=== PATIENT | male | born 1985 | race American Indian/Alaskan Native ===

== ENCOUNTER 2017-05-24 08:44 | Emergency (ER) | payer SELFPAY ==
[2017-05-24 09:05] VITALS: TEMP 98.4; O2SAT 100
--- NOTE | 2017-05-24 09:45 | ED PDOC ---
Arrival/HPI - General Chief Complaint: Lower Extremity Problem/Injury Time Seen by Provider: 05/24/17 09:26 Historian: Patient - History of Present Illness Narrative History of Present Illness (Text): 05/24/17 09:43 31yo male with no PMHx present with complaint of right foot pain. States he twisted his right foot yesterday. Started having pain when he woke up this morning. Pain is with ambulation. Did not take any medication for the pain. Past Medical History - Provider Review Nursing Documentation Reviewed: Yes - Infectious Disease Hx of Infectious Diseases: None - Psychiatric Hx Substance Use: No - Anesthesia Hx Anesthesia: No Family/Social History - Physician Review Nursing Documentation Reviewed: Yes Family/Social History: Unknown Family HX Smoking Status: Current Some Days Smoker Hx Alcohol Use: No Hx Substance Use: No Allergies/Home Meds Allergies/Adverse Reactions: Allergies No Known Allergies Allergy (Verified 05/24/17 09:05) Review of Systems - Physician Review All systems were reviewed & negative as marked: Yes - Review of Systems Constitutional: Normal Eyes: Normal ENT: Normal Respiratory: Normal Cardiovascular: Normal Gastrointestinal: Normal Genitourinary Male: Normal Musculoskeletal: Arthralgias (Right foot pain) Skin: Normal Neurological: Normal Endocrine: Normal Hemo/Lymphatic: Normal Psychiatric: Normal Physical Exam Vital Signs Reviewed: Yes Vital Signs Temp Pulse Resp BP Pulse Ox 05/24/17 09:15 74 18 148/70 100 05/24/17 08:59 98.4 F 82 16 148/70 100 Temperature: Afebrile Blood Pressure: Normal Pulse: Regular Respiratory Rate: Normal Appearance: Positive for: Well-Appearing, Non-Toxic, Comfortable Pain Distress: None Mental Status: Positive for: Alert and Oriented X 3 - Systems Exam Head: Present: Atraumatic, Normocephalic Pupils: Present: PERRL Extroacular Muscles: Present: EOMI Conjunctiva: Present: Normal Mouth: Present: Moist Mucous Membranes Neck: Present: Normal Range of Motion Respiratory/Chest: Present: Clear to Auscultation, Good Air Exchange. No: Respiratory Distress, Accessory Muscle Use Cardiovascular: Present: Regular Rate and Rhythm, Normal S1, S2. No: Murmurs Abdomen: Present: Normal Bowel Sounds. No: Tenderness, Distention, Peritoneal Signs Back: Present: Normal Inspection Upper Extremity: Present: Normal Inspection. No: Cyanosis, Edema Lower Extremity: Present: NORMAL PULSES, Normal ROM, Tenderness (Right lateral foot), Neurovascularly Intact. No: Edema, Swelling, Deformity Neurological: Present: GCS=15, CN II-XII Intact, Speech Normal Skin: Present: Warm, Dry, Normal Color. No: Rashes Psychiatric: Present: Alert, Oriented x 3, Normal Insight, Normal Concentration Medical Decision Making ED Course and Treatment: 05/24/17 11:04 Right foot xray - No acute fracture noted Hernan wrap applied and result was DW the pt. Referred to ortho. - RAD Interpretation Radiology Orders: 05/24/17 09:29 FOOT RIGHT 3 VIEWS ROUTINE [RAD] Stat - Medication Orders Current Medication Orders: Discontinued Medications Ibuprofen (Motrin Tab) 600 mg PO STAT STA Stop: 05/24/17 09:31 Last Admin: 05/24/17 10:00 Dose: 600 mg MAR Pain/Vitals Document 05/24/17 10:00 RG (Rec: 05/24/17 10:23 RG [facility] [id number] Pain Reassessment Is This A Pain ReAssessment? Yes Sleep Is patient sleeping during reassessment? No Presence of Pain Presence of Pain Yes Pain Scale Used Pain Scale Used Numeric Location Left, Right or Bilateral Right Pain Location Body Site Foot Intensity 8 Disposition/Present on Arrival - Present on Arrival Any Indicators Present on Arrival: No History of DVT/PE: No History of Uncontrolled Diabetes: No Urinary Catheter: No History of Decub. Ulcer: No History Surgical Site Infection Following: None - Disposition Have Diagnosis and Disposition been Completed?: Yes Diagnosis: Foot sprain Disposition: HOME/ ROUTINE Disposition Time: 11:05 Patient Plan: Discharge Condition: STABLE Discharge Instructions (ExitCare): Foot Sprain (ED) Additional Instructions: Follow up with your doctor Rest, Ice and compress area Return to ED for any new or worsening symptoms Prescriptions: Ibuprofen [Motrin Tab] 600 mg PO Q6 #20 tab Referrals: PCP,NO [Primary Care Provider] - Follow up with primary Gustavo Dugan MD [Staff Provider] - Follow up with primary Forms: [employer] (Welsh), WORK NOTE
--- NOTE | 2017-05-24 12:04 | RAD ---
PROCEDURE: Right Foot Radiographs. HISTORY: Posttraumatic right foot pain COMPARISON: None. FINDINGS: BONES: Normal. No fracture. JOINTS: Normal. SOFT TISSUES: Normal. OTHER FINDINGS: None. IMPRESSION: Unremarkable right foot radiographs.
[2017-05-24 12:15] VITALS: BP 125/76; PULSE 60; RESP 14
== END 2017-05-24 12:03 | disposition home or self-care (01) ==
LOC: MERGE 08:44 → ED 08:44
DX: S93.601A Unspecified sprain of right foot, initial encounter (principal); X50.1XXA Overexertion from prolonged static or awkward postures, initial encounter; Y92.9 Unspecified place or not applicable